=== PATIENT | female | born 1980 | race Two or more races ===

== ENCOUNTER 2024-12-17 19:34 | Emergency (ER) | payer MEDICAID, SELFPAY ==
[2024-12-17 19:36] VITALS: BMI 109.1
--- NOTE | 2024-12-17 19:58 | XR_ITS ---
Examination: Knee, right , 3 views Technique: Knee AP, lateral, oblique 3 views Date and time of exam: December 17, 20242017 hours INDICATIONS: Patient fell one week ago with injury to the knee, knee pain. FINDINGS: No fracture or dislocation Moderate to advanced tricompartment osteoarthritis IMPRESSION: No acute fracture
[2024-12-17 20:02] VITALS: BP 153/91; PULSE 90; RESP 20; TEMP 37.1; O2SAT 95
--- NOTE | 2024-12-17 20:23 | XR_ITS ---
Examination: Duplex scan of the lower extremity, unilateral left Date and time of exam: December 17, 2024 2039 hours INDICATIONS: Left leg swelling and pain beginning one week ago Technique: Duplex scan of the extremity veins using B-mode/grayscale imaging and Doppler spectral analysis and color flow Attention is directed to internal echogenicity, compression and augmentation involving these veins, color flow assessment, spectral analysis Findings: Major deep venous structures in the extremity demonstrate normal course and caliber. No diagnostic visualization distal left superficial femoral vein There is no evidence of deep vein thrombosis. Normal color flow and spectral analysis Impression: No DVT demonstrated
--- NOTE | 2024-12-17 20:25 | PD.EDLOWEX ---
Lower Extremity Injury RME/HPI General Chief Complaint: Extremity Injury, Lower Stated Complaint: L KNEE INJURY Time Seen by Provider: 12/17/24 20:19 Arrival date/time: 12/17/24 19:34 44F with history of DM and morbid obesity presents to ED with L knee pain and LLE swelling after trip and fall 2 days ago. Limitations: no limitations Related Data Home Medications ?Medication ?Instructions ?Recorded ?Confirmed metformin 750 mg tablet,extended 750 mg PO BID ##0 11/26/16 01/28/18 release 24 hr (Glucophage XR) montelukast 10 mg tablet 10 mg PO HS #0 tabs 11/26/16 01/28/18 (Singulair) sitagliptin phosphate 100 mg 100 mg PO QDAY #0 tabs 11/26/16 01/28/18 tablet (Januvia) fluticasone 500 mcg-salmeterol 50 2 puff inhalation QDAY 09/09/17 01/28/18 mcg/dose blistr powdr for inhalation (Advair Diskus) zyrtec 20 mg PO DAILY ##0 01/28/18 01/28/18 Previous Rx's ?Medication ?Instructions ?Recorded azithromycin 250 mg tablet See Rx Instructions PO .COMPLEX #6 06/08/23 (Zithromax Z-Jignesh) tabs albuterol sulfate 90 mcg/actuation 2 puff inhalation Q6H PRN 07/06/23 aerosol inhaler shortness of breath or wheezing #8.5 grams prednisone 50 mg tablet 50 mg PO QDAY #5 tabs 07/06/23 Allergies Allergy/AdvReac Type Severity Reaction Status Date / Time aspirin Allergy Mild Swelling Verified 12/17/24 19:41 of Lip/Tongue/Throat Penicillins Allergy Swelling Verified 12/17/24 19:41 of Lip/Tongue/Throat Review of Systems Review of Systems Systems Reviewed: All systems reviewed, normal except as documented Constitutional Constitutional: Reports system reviewed and no additional complaints, except as documented, Denies fever(s) and Denies headache(s) ENT Ears, Nose, Mouth, and Throat: Denies disequilibrium and Denies headache(s) Cardiovascular Cardiovascular: Reports system reviewed and no additional complaints, except as documented, Denies chest pain and Denies dyspnea Respiratory Respiratory: Reports system reviewed and no additional complaints, except as documented, Denies cough and Denies dyspnea Gastrointestinal Gastrointestinal: Reports system reviewed and no additional complaints, except as documented, Denies abdominal pain, Denies nausea and Denies vomiting Musculoskeletal Musculoskeletal: Reports as per HPI, Reports arthralgias and Reports joint swelling Neurologic Neurologic: Reports system reviewed and no additional complaints, except as documented, Denies confusion, Denies disequilibrium and Denies headache(s) Psychiatric Psychiatric: Denies confusion Past Medical History Past Medical History CARDIAC: Negative Congestive Heart Failure RESPIRATORY: Positive Chronic Obstructive Pulmonary Disease (COPD), Asthma and Pneumonia; Negative Emphysema or Tuberculosis GENITOURINARY: Negative Renal Disease ENDOCRINE: Positive Diabetes Mellitus Type 2; Negative Diabetes Mellitus Type 1 OTHER HISTORY: Negative Cancer Social History SMOKING STATUS: Former smoker SUBSTANCE USE: does not use OCCUPATION: SALES OPERATIONS COORDINATOR ED Exam General Limitations: Present no limitations General appearance: Present alert and in no apparent distress Head Head exam: Present atraumatic Eye Eye exam: Present normal appearance, PERRL and EOMI ENT ENT exam: Present normal exam, normal oropharynx and mucous membranes moist Neck Neck exam: Present normal inspection, full ROM and trachea midline Chest Chest inspection: Present normal inspection and symmetric chest wall rise Respiratory Respiratory exam: Present normal lung sounds bilaterally Cardiovascular Cardiovascular exam: Present regular rate, normal rhythm and normal heart sounds Abdominal Exam Abdominal exam: Present soft and normal bowel sounds Extremities Exam Extremities exam: Present full ROM Expanded Lower Extremity Exam Knee exam: Present full ROM (L), tenderness, swelling and ecchymosis Lower leg exam: Present full ROM, tenderness, swelling and ecchymosis Back Exam Back exam: Present normal inspection and full ROM Neurological Exam Neurological exam: Present alert, oriented X3 and CN II-XII intact Psychiatric Psychiatric exam: Present normal affect and normal mood Skin Skin exam: Present warm, dry, intact and normal color Course Quality Measures none Orders Category Date Time Status polly wrap [Splint / Immobilizer] STAT Care 12/17/24 21:23 Completed US venous doppler LE LT Stat Exams 12/17/24 20:23 Completed XR knee LT 3V Stat Exams 12/17/24 19:58 Completed Vital Signs Vital signs: Vital Signs Temperature 98.7 F 12/17/24 20:02 Pulse Rate 90 12/17/24 20:02 Respiratory Rate 20 12/17/24 20:02 Blood Pressure 153/91 H 12/17/24 20:02 Pulse Oximetry (%) 95 12/17/24 20:02 Oxygen Delivery Method Room Air 12/17/24 20:02 O2 at 95% on RA and WNLs Extremity Injury, Lower MDM Narrative MDM Narrative:: 44F with history of DM and morbid obesity presents to ED with L knee pain and LLE swelling after trip and fall 2 days ago. Physical exam reveals L knee/lower leg swelling, bruising, and tenderness. Gait and ROM mostly intact. Patient alice febrile, calm, and alert. XR no fx. US no DVT. POLLY and counselor supervisor given. Patient data External records reviewed:: [facility] previous records Clinical information provided by:: patient Social determinants that could affect healthcare access:: none Patient has the following chronic illnesses:: DM and morbid obesity How is presenting disease/condition affected by chronic disease/condition?: exacerbated by Evaluation data The following diagnostics were reviewed and interpreted by me:: radiology exam(s) Lab and/or radiology exams considered but not ordered:: ordered Interpretation Summary: above Medications / Prescriptions Medications or Prescriptions considered but not ordered:: not ordered Medication administrations:: n/a Consultations Consultation(s) initiated? (list below): No Diagnosis Extremity Injury, Lower Differential Diagnosis: ankle sprain and strain, acute internal derangement of knee, fracture of femur, fracture of hip, puncture wound of foot, fracture of toe, ankle fracture and other (DVT, contusion of L knee) Most likely diagnosis given after review of the tests above:: contusion of L knee Admission Indicated Admission indicated?: not indicated Admission Request Was there a request for admission?: No Disposition Plan Disposition Plan: Discharge Discharge Attestation Discharge Attestation: The patient and all family members were given an opportunity to ask questions and understood the discharge instructions. Discharge instructions specifically effects, indications for sooner follow up or return to the emergency department, and the expected course of current diagnosis. Patient condition: Stable Discharge Plan Plan Patient Disposition: HOME (Self Care) Discharge Disposition comment: Stable Prescriptions/Referrals Prescriptions/Med Rec: No Action montelukast [Singulair] 10 MG tablet 10 mg PO HS Qty: 0 metformin [Glucophage XR] 750 MG tablet extended release 24 hr 750 mg PO BID Qty: 0 sitagliptin phosphate [Januvia] 100 MG tablet 100 mg PO QDAY Qty: 0 zyrtec 20 mg PO DAILY Qty: 0 fluticasone propion-salmeterol [Advair Diskus] 500-50 mcg/dose Blister With Device 2 puff Inhalation QDAY azithromycin [Zithromax Z-Jignesh] 250 mg tablet See Rx Instructions .ROUTE .COMPLEX Qty: 6 0RF Rx Instructions: For 250 mg dose pack: take 500 mg today (day 1), then 250 mg for 4 days (days 2-5) prednisone 50 mg tablet 50 mg PO QDAY Qty: 5 0RF albuterol sulfate 90 mcg/actuation HFA aerosol inhaler 2 puff inhalation Q6H PRN (Reason: shortness of breath or wheezing) Qty: 8.5 0RF Referrals: Nick Sadler MD [Primary Care Provider] - In 1 week Problem List Clinical Impression: Contusion of left knee Patient/Caregiver Discharge Instructions Education Materials: ED Contusion, Lower Extremity Additional Instructions: Please follow-up with PCP within 24-48 hours and return immediately if symptoms worsen. If problem persists, recommend outpatient PT and/or MRI follow-up. In the meantime, rest, use ice/heat, and/or compression. Print Language: Icelandic Stand Alone Forms: Patient Portal Info Letter VANNESA/JANNET Supervising Physician VANNESA/JANNET Supervising Physician: Dr. Klein
[2024-12-17 21:34] VITALS: PULSE 97; RESP 15; TEMP 36.7; O2SAT 95
== END 2024-12-17 21:32 | disposition home or self-care (01) ==
PROVIDERS: Emergency Provider Emergency Medicine; PCP Family Medicine
DX: S80.02XA Contusion of left knee, initial encounter (principal); M79.89 Other specified soft tissue disorders; W01.0XXA Fall on same level from slipping, tripping and stumbling without subsequent striking against object, initial encounter
CPT/HCPCS: 73562; 93971; 99284